=== PATIENT | female | born 1995 | race Caucasian/White ===

== ENCOUNTER 2018-03-13 09:44 | Emergency (ER) | payer BC | END 2018-03-13 11:20 | disposition home or self-care (01) | LOC: D.ER 09:44 | DX: S09.90XA Unspecified injury of head, initial encounter (principal); W22.8XXA Striking against or struck by other objects, initial encounter; Y93.89 Activity, other specified; Y92.019 Unspecified place in single-family (private) house as the place of occurrence of the external cause; S06.0X0A Concussion without loss of consciousness, initial encounter ==

== ENCOUNTER 2018-10-31 17:34 | Emergency (ER) | payer SELFPAY ==
[~2018-10-31] VITALS: Ht 157.5 cm; Wt 54.5 kg
[2018-10-31 17:59] VITALS: Ht 157.5 cm; Wt 54.5 kg
[2018-10-31] MEDS ORDERED: PROMETRIUM100 MG PO (18:00)
[2018-10-31] MEDS ORDERED: LAMICTAL200 M1 PO (18:00)
[2018-10-31] MEDS ORDERED: PRENAVITE1 TAB PO (18:01)
[2018-10-31 18:22] LABS: APPEARANCE CLEAR (CLEAR); COLOR STRAW (YELLOW)
[2018-10-31 18:23] LABS: BASOPHILS 0.1 % (0-2); EOSINOPHILS 1.5 % (0-7); HEMATOCRIT 37.3 % (36.0-48.0); HEMOGLOBIN 13.2 g/dL (12-16); IMMATURE GRANULOCYTES 0.5 % (0-5); LYMPHOCYTES 25.7 % (15-50); MCHC 35.4 g/dL (31.0-37.0); MCV 90.5 fL (80.0-100.0); MEAN PLATELET VOLUME 9.5 fL (7.4-10.4); MONOCYTES 7.3 % (2-11); NEUTROPHILS 64.9 % (40-80); PLATELET COUNT 248 10x3/uL (130-400); RBC 4.12 10x6/uL (4.00-5.40); RDW 13.4 % (11.5-14.5); WBC 8.8 10x3/uL (4.8-10.8)
[2018-10-31 18:23] LABS: BILIRUBIN NEGATIVE (NEGATIVE); GLUCOSE NEGATIVE (NEGATIVE); KETONE NEGATIVE (NEGATIVE); NITRITE NEGATIVE (NEGATIVE); PROTEIN NEGATIVE (NEGATIVE); UROBILINOGEN NORMAL (NORMAL)
[2018-10-31 18:37] LABS: ALBUMIN 3.1 g/dL (3.4-5.0); ALKALINE PHOSPHATASE 62 U/L (46-116); ALT (SGPT) 13 U/L (10-68); BILIRUBIN - TOTAL 0.66 mg/dL (0.2-1.3); CALC OSMOLALITY 272 mosm/kg (275-300); CALCIUM 8.6 mg/dL (8.5-10.1); CARBON DIOXIDE 24.9 mmol/L (21.0-32.0); CHLORIDE - SERUM 103 mmol/L (98-107); CREATININE - SERUM 0.7 mg/dL (0.6-1.3); GLUCOSE 84 mg/dL (74-106); POTASSIUM - SERUM 3.7 mmol/L (3.5-5.1); SODIUM 138 mmol/L (136-145); UREA NITROGEN 8 mg/dL (7-18); eGFR NON AFRICAN AMERICAN > 90 mL/min (90-120)
[2018-10-31 19:00] LABS: HCG - QUANTITATIVE (MATERNAL) 19330 mIU/mL
[2018-10-31] MEDS ORDERED: HYDROCODON-ACE1 EAC7 PO (23:40)
[2018-10-31] MEDS ORDERED: PHENERGAN25 M1 PO (23:40)
[2018-10-31 23:58] VITALS: BP 112/71
== END 2018-10-31 23:58 | disposition home or self-care (01) ==
LOC: D.ER 17:34
PROVIDERS: Family Medicine
DX: O26.892 Other specified pregnancy related conditions, second trimester (principal); Z3A.17 17 weeks gestation of pregnancy; R10.2 Pelvic and perineal pain; M54.5 Low back pain

== ENCOUNTER 2018-11-07 18:31 | Emergency (ER) | payer SELFPAY ==
[~2018-11-07] VITALS: Ht 157.5 cm; Wt 54.5 kg
[~2018-11-07 18:31] MED LIST: HYDROCODON-ACE1 EAC7 PO; LAMICTAL200 M1 PO; PHENERGAN25 M1 PO; PRENAVITE1 TAB PO; PROMETRIUM100 MG PO
[2018-11-07 18:48] VITALS: Ht 157.5 cm; Wt 54.5 kg
[2018-11-07 19:28] LABS: BASOPHILS 0.1 % (0-2); EOSINOPHILS 2.5 % (0-7); HEMATOCRIT 36.1 % (36.0-48.0); HEMOGLOBIN 12.7 g/dL (12-16); IMMATURE GRANULOCYTES 0.5 % (0-5); MCH 32.2 pg (26.0-34.0); MCHC 35.2 g/dL (31.0-37.0); MCV 91.4 fL (80.0-100.0); MEAN PLATELET VOLUME 9.5 fL (7.4-10.4); MONOCYTES 6.5 % (2-11); NEUTROPHILS 61.4 % (40-80); PLATELET COUNT 228 10x3/uL (130-400); RBC 3.95 10x6/uL (4.00-5.40); WBC 9.3 10x3/uL (4.8-10.8)
[2018-11-07 19:37] LABS: APPEARANCE CLEAR (CLEAR); BILIRUBIN NEGATIVE (NEGATIVE); COLOR YELLOW (YELLOW); GLUCOSE NEGATIVE (NEGATIVE); KETONE NEGATIVE (NEGATIVE); NITRITE NEGATIVE (NEGATIVE); PROTEIN NEGATIVE (NEGATIVE); SPECIFIC GRAVITY 1.015 (1.005-1.020); UROBILINOGEN NORMAL (NORMAL)
[2018-11-07 19:44] LABS: UDS - AMPHET NEGATIVE QUAL (NEGATIVE); UDS - BARB NEGATIVE QUAL (NEGATIVE); UDS - BENZO NEGATIVE QUAL (NEGATIVE); UDS - COCAINE NEGATIVE QUAL (NEGATIVE); UDS - OPIATE NEGATIVE QUAL (NEGATIVE); UDS - PCP NEGATIVE QUAL (NEGATIVE); UDS - THC NEGATIVE QUAL (NEGATIVE)
[2018-11-07 19:48] LABS: ALBUMIN 3.1 g/dL (3.4-5.0); ALKALINE PHOSPHATASE 61 U/L (46-116); ALT (SGPT) 13 U/L (10-68); BILIRUBIN - TOTAL 0.65 mg/dL (0.2-1.3); CALC OSMOLALITY 273 mosm/kg (275-300); CALCIUM 8.5 mg/dL (8.5-10.1); CHLORIDE - SERUM 102 mmol/L (98-107); CREATININE - SERUM 0.6 mg/dL (0.6-1.3); GLUCOSE 91 mg/dL (74-106); POTASSIUM - SERUM 3.7 mmol/L (3.5-5.1); PROTEIN - SERUM 6.9 g/dL (6.4-8.2); SODIUM 138 mmol/L (136-145); UREA NITROGEN 7 mg/dL (7-18); eGFR NON AFRICAN AMERICAN > 90 mL/min (90-120)
[2018-11-07 20:09] LABS: HCG - QUANTITATIVE (MATERNAL) 18526 mIU/mL
[2018-11-07] MEDS ORDERED: FLAGYL500 MG PO (21:31)
[2018-11-07 23:23] VITALS: BP 116/62
== END 2018-11-07 23:24 | disposition home or self-care (01) ==
LOC: D.ER 18:31
PROVIDERS: Family Medicine; Obstetrics & Gynecology
DX: O26.892 Other specified pregnancy related conditions, second trimester (principal); Z3A.18 18 weeks gestation of pregnancy; R10.9 Unspecified abdominal pain; N76.0 Acute vaginitis; B96.89 Other specified bacterial agents as the cause of diseases classified elsewhere

== ENCOUNTER 2018-11-11 17:19 | Emergency (ER) | payer MEDICAID ==
[~2018-11-11] VITALS: Ht 157.5 cm; Wt 50.0 kg
[~2018-11-11 17:19] MED LIST changes: +FLAGYL500 MG PO
[2018-11-11 18:01] VITALS: Ht 157.5 cm; Wt 50.0 kg
[2018-11-11 18:38] LABS: BASOPHILS 0 % (0-2); EOSINOPHILS 1.4 % (0-7); HEMATOCRIT 35.8 % (36.0-48.0); HEMOGLOBIN 12.3 g/dL (12-16); IMMATURE GRANULOCYTES 0.5 % (0-5); LYMPHOCYTES 26.6 % (15-50); MCH 31.9 pg (26.0-34.0); MCHC 34.4 g/dL (31.0-37.0); MEAN PLATELET VOLUME 9.6 fL (7.4-10.4); MONOCYTES 7.2 % (2-11); NEUTROPHILS 64.3 % (40-80); PLATELET COUNT 221 10x3/uL (130-400); RBC 3.85 10x6/uL (4.00-5.40); RDW 13.3 % (11.5-14.5); WBC 6.5 10x3/uL (4.8-10.8)
[2018-11-11 18:59] LABS: ALKALINE PHOSPHATASE 58 U/L (46-116); ALT (SGPT) 14 U/L (10-68); BILIRUBIN - TOTAL 0.56 mg/dL (0.2-1.3); CALC OSMOLALITY 273 mosm/kg (275-300); CALCIUM 8.4 mg/dL (8.5-10.1); CARBON DIOXIDE 27.4 mmol/L (21.0-32.0); CHLORIDE - SERUM 104 mmol/L (98-107); CREATININE - SERUM 0.6 mg/dL (0.6-1.3); GLUCOSE 95 mg/dL (74-106); POTASSIUM - SERUM 3.6 mmol/L (3.5-5.1); PROTEIN - SERUM 6.7 g/dL (6.4-8.2); SODIUM 138 mmol/L (136-145); UREA NITROGEN 8 mg/dL (7-18); eGFR NON AFRICAN AMERICAN > 90 mL/min (90-120)
[2018-11-11 19:09] LABS: APPEARANCE CLEAR (CLEAR); BILIRUBIN NEGATIVE (NEGATIVE); COLOR YELLOW (YELLOW); GLUCOSE NEGATIVE (NEGATIVE); KETONE NEGATIVE (NEGATIVE); NITRITE NEGATIVE (NEGATIVE); PROTEIN NEGATIVE (NEGATIVE); UROBILINOGEN NORMAL (NORMAL)
[2018-11-11 19:10] LABS: EPITHELIAL CELLS OCC /hpf (0-5); WHITE CELLS - URINE 0-5 /hpf (0-5)
[2018-11-11 19:21] LABS: HCG - QUANTITATIVE (MATERNAL) 17322 mIU/mL
[2018-11-11 20:39] VITALS: BP 113/59
--- NOTE | 2018-11-11 20:43 | NUR ---
PT SENT TO LABOR AND DELIVERY FOR FURTHER EVAL AT THE REQUEST OF DR CHAN.
== END 2018-11-11 20:40 | disposition short-term general hospital (02) ==
LOC: D.ER 17:19
PROVIDERS: Family Medicine
DX: Z03.79 Encounter for other suspected maternal and fetal conditions ruled out (principal)

== ENCOUNTER → 2018-11-11 20:58 | Outpatient (CLI) | payer MEDICAID ==
[2018-11-11 18:01] VITALS: BMI 20.1
[2018-11-11 21:48] LABS: APPEARANCE CLEAR (CLEAR); BILIRUBIN NEGATIVE (NEGATIVE); COLOR YELLOW (YELLOW); GLUCOSE NEGATIVE (NEGATIVE); KETONE NEGATIVE (NEGATIVE); NITRITE NEGATIVE (NEGATIVE); PROTEIN NEGATIVE (NEGATIVE); UROBILINOGEN NORMAL (NORMAL)
[2018-11-11 21:50] LABS: WHITE CELLS - URINE 0-5 /hpf (0-5)
[2018-11-11 21:51] LABS: EPITHELIAL CELLS 0-5 /hpf (0-5)
[2018-11-11 21:52] LABS: BACTERIA FEW /hpf (NONE SEEN)
== END | disposition home or self-care (01) ==
LOC: D.LDO 20:58
PROVIDERS: Obstetrics & Gynecology
DX: O26.892 Other specified pregnancy related conditions, second trimester (principal); Z3A.18 18 weeks gestation of pregnancy; O36.8120 Decreased fetal movements, second trimester, not applicable or unspecified; N98.9 Complication associated with artificial fertilization, unspecified; R10.9 Unspecified abdominal pain

== ENCOUNTER 2021-02-13 14:23 | Emergency (ER) | payer BC ==
[~2021-02-13] VITALS: Ht 157.5 cm; Wt 46.8 kg
[2021-02-13 14:39] VITALS: Ht 157.5 cm; Wt 46.8 kg
[2021-02-13 16:37] LABS: BASOPHILS 0.5 % (0-2); HEMATOCRIT 44.5 % (36.0-48.0); HEMOGLOBIN 15.2 g/dL (12-16); IMMATURE GRANULOCYTES 0.6 % (0-5); LYMPHOCYTE ABS# 2.65 10x3/uL (1.18-3.74); LYMPHOCYTES 32.4 % (15-50); MCH 31.7 pg (26.0-34.0); MCHC 34.2 g/dL (31.0-37.0); MCV 92.7 fL (80.0-100.0); MEAN PLATELET VOLUME 9.5 fL (7.4-10.4); MONOCYTES 5.6 % (2-11); NEUTROPHILS 59.9 % (40-80); PLATELET COUNT 405 10x3/uL (130-400); RDW 12.6 % (11.5-14.5); WBC 8.2 10x3/uL (4.8-10.8)
[2021-02-13 16:48] LABS: CALC OSMOLALITY 277 mosm/kg (275-300); CALCIUM 8.6 mg/dL (8.5-10.1); CARBON DIOXIDE 28.6 mmol/L (21.0-32.0); CHLORIDE - SERUM 103 mmol/L (98-107); CREATININE - SERUM 0.7 mg/dL (0.6-1.3); GLUCOSE 87 mg/dL (74-106); POTASSIUM - SERUM 3.7 mmol/L (3.5-5.1); SODIUM 141 mmol/L (136-145); UREA NITROGEN 8 mg/dL (7-18); eGFR NON AFRICAN AMERICAN > 90 mL/min (90-120)
[2021-02-13 16:54] LABS: ALKALINE PHOSPHATASE 91 U/L (30-120); ALT (SGPT) 18 U/L (10-68); BILIRUBIN - TOTAL 0.79 mg/dL (0.2-1.3); PROTEIN - SERUM 7.7 g/dL (6.4-8.2)
[2021-02-13 17:51] LABS: BILIRUBIN NEGATIVE (NEGATIVE); KETONE NEGATIVE (NEGATIVE); NITRITE NEGATIVE (NEGATIVE); UROBILINOGEN NORMAL mg/dL (< 2)
[2021-02-13 18:03] LABS: UDS - AMPHET NEGATIVE QUAL (NEGATIVE); UDS - BARB NEGATIVE QUAL (NEGATIVE); UDS - BENZO NEGATIVE QUAL (NEGATIVE); UDS - COCAINE NEGATIVE QUAL (NEGATIVE); UDS - OPIATE NEGATIVE QUAL (NEGATIVE); UDS - PCP NEGATIVE QUAL (NEGATIVE); UDS - THC NEGATIVE QUAL (NEGATIVE)
[2021-02-13 19:32] VITALS: BP 96/60
[2021-02-15 14:10] LABS: CHLAMYDIA TRACHOMATIS, NAA Negative (Negative)
== END 2021-02-13 19:32 | disposition home or self-care (01) ==
LOC: D.ER 14:23
PROVIDERS: Family Medicine
DX: R51.9 Headache, unspecified (principal); R42 Dizziness and giddiness